=== PATIENT | male | born 1960 | race Caucasian/White ===

== ENCOUNTER 2020-03-12 14:35 | Emergency (ER) | payer MEDICARE, OTHER ==
[~2020-03-12] VITALS: Ht 172.7 cm; Wt 111.1 kg
--- NOTE | 2020-03-12 14:35 | NUR ---
PT BIB SELF C/O SI "I WANT TO RUN HTRU TRAFFIC" PT IS AAOX4, NOT IN RESPIRATORY DISTRESS, V/S STABLE, KEPT RESTED AND COMFORTABLE. WILL CONTINUE TO MONITOR. SITTER AT BEDSIDE.
--- NOTE | 2020-03-12 14:46 | NUR ---
[facility]URITY AT BEDSIDE FOR WANDING.
--- NOTE | 2020-03-12 14:50 | NUR ---
SEEN AND EXAMINED BY .
[2020-03-12 15:31] LABS: BASOPHILS # (AUTO) 0.1 /CMM (0.0-0.2); BASOPHILS % (AUTO) 0.7 % (0.0-2.0); EOSINOPHILS % (AUTO) 0.4 % (0.0-6.0); HEMATOCRIT 40 % (39-51); HEMOGLOBIN 12.4 g/dL (13.5-17.5); LYMPHOCYTES # (AUTO) 2.3 /CMM (0.8-4.8); LYMPHOCYTES % (AUTO) 20.5 % (20.0-44.0); MEAN CORPUSCULAR HGB CONC 32 g/dl (31.0-36.0); MEAN CORPUSCULAR VOLUME 85 fL (80-96); MONOCYTES # (AUTO) 0.7 /CMM (0.1-1.30); MONOCYTES % (AUTO) 6.1 % (2.0-12.0); NEUTROPHILS # (AUTO) 8.2 /CMM (1.8-8.9); NEUTROPHILS % (AUTO) 72.3 % (43.0-81.0); PLATELET COUNT (AUTO) 263 /CMM (150-450); RED BLOOD CELL COUNT(AUTO) 4.66 MIL/uL (4.5-6.0); WHITE BLOOD COUNT (AUTO) 11.4 K/uL (4.3-11.0)
[2020-03-12 15:33] LABS: APPEARANCE,URINE CLEAR (CLEAR); BILIRUBIN,URINE NEGATIVE (NEGATIVE); BLOOD, URINE TRACE-INTA Ery/uL (NEGATIVE); COLOR,URINE YELLOW (YELLOW); KETONES,URINE NEGATIVE (NEGATIVE); LEUKOCYTE ESTERASE ,URINE NEGATIVE (NEGATIVE); NITRITE, URINE NEGATIVE (NEGATIVE); PROTEIN,URINE NEGATIVE (NEGATIVE); UGLUCOSE NEGATIVE (NEGATIVE); UROBILINOGEN,URINE 0.2 EU/dL (0.2)
[2020-03-12 15:37] LABS: CALCIUM, SERUM 7.8 mg/dL (8.5-10.1); CREATININE 1.1 mg/dL (0.6-1.3); POTASSIUM 3.3 mmol/L (3.5-5.1)
--- NOTE | 2020-03-12 15:50 | NUR ---
URINE SPECIMEN COLLECTED AND SENT TO LAB.
[2020-03-12 15:51] LABS: BACTERIA,URINE None seen /HPF (None Seen); SQUAMOUS EPITHELIAL CELL,UR 0-2 /HPF (None Seen); WBC,URINE 0-2 /HPF (0-3)
[2020-03-12 16:06] LABS: ALBUMIN 3.5 g/dL (3.4-5.0); BILIRUBIN,DIRECT 0.1 mg/dL (0.0-0.2); BILIRUBIN,TOTAL 0.3 mg/dL (0.2-1.0); SALICYLATE 5.1 mg/dL (2.8-20.0); TOTAL PROTEIN, SERUM 7.2 g/dL (6.4-8.2)
[2020-03-12] MEDS ORDERED: ACETAMINOPHEN ES 500 MG TABLET ONE (16:56)
[2020-03-12] MEDS ORDERED: ACETAMINOPHEN ES 500 MG TABLET PO ONE (17:00)
--- NOTE | 2020-03-12 18:54 | NUR ---
ASSESSED PT ON BED AWAKE AND ALERT. NOT IN RESPIRATORY DISTRESS, V/S STABLE, KEPT RESTED AND COMFORTABLE. WILL CONTINUE TO MONITOR.
[2020-03-12] MEDS ORDERED: KETOROLAC TROMETHAMINE INJ 30 MG/ML VIAL ONE (22:26)
[2020-03-12] MEDS ORDERED: KETOROLAC TROMETHAMINE INJ 60 MG/2 ML VIAL IM ONE (23:00)
[2020-03-13 01:26] VITALS: BP 131/78
--- NOTE | 2020-03-13 03:04 | NUR ---
PT ACCEPTED AT [facility]. DR. [id number] [phone] [id number] BED WILL BE RECEIVED UPON REPORT.
--- NOTE | 2020-03-13 03:35 | NUR ---
[facility] ETA 30-45 MIN
[2020-03-13] MEDS ORDERED: CHLORDIAZEPOXIDE HCL 25 MG CAPSULE PO ONE (04:00)
[2020-03-13] MEDS ORDERED: CHLORDIAZEPOXIDE HCL 25 MG CAPSULE ONE (04:01)
--- NOTE | 2020-03-13 04:27 | NUR ---
REPORT GIVEN TO RC GAMBOA AT [facility].
--- NOTE | 2020-03-13 04:30 | NUR ---
[facility] AT BEDSIDE FOR TRANSPORT TO [facility].
== END 2020-03-13 06:17 ==
LOC: ER 14:37
DX: R45.851 Suicidal ideations (principal); F32.9 Major depressive disorder, single episode, unspecified; I10 Essential (primary) hypertension; J44.9 Chronic obstructive pulmonary disease, unspecified
CPT/HCPCS: 36415; 80048; 80076; 80305; 80307; 80329; 81001; 85025; 96372; 99285; G0480; J1885; 81000-TC